=== PATIENT | male | born 1960 | race Caucasian/White ===

== ENCOUNTER 2024-03-23 20:29 | Inpatient (IN) | payer OTHER ==
[2024-03-23 21:20] VITALS: BMI 27.3
[2024-03-23] MEDS ORDERED: BISMUTH SUBSALICYLATE 524 MG/30 ML PO PRN (21:42)
[2024-03-23] MEDS ORDERED: guaiFENesin 600 MG TABLET.ER (FP) PO PRN (21:42)
[2024-03-23] MEDS ORDERED: IBUPROFEN 400 MG TABLET (FP) PO PRN (21:42)
[2024-03-23] MEDS ORDERED: LOPERAMIDE HCL 2 MG CAPSULE PO PRN (21:42)
[2024-03-23] MEDS ORDERED: MAG HYDROX/AL HYDROX/SIMETH 30 ML UNIT-DOSE CUP PO PRN (21:42)
[2024-03-23] MEDS ORDERED: MAGNESIUM HYDROX 2400MG/30ML ORAL SUSPENSION 30 ML CUP PO PRN (21:42)
[2024-03-23] MEDS ORDERED: POLYETHYLENE GLYCOL (HEALTHYLAX) 3350 17 GM PACKET PO PRN (21:42)
[2024-03-23] MEDS ORDERED: BENZONATATE 200 MG CAPSULE PO PRN (21:42)
[2024-03-23] MEDS ORDERED: ONDANSETRON *ODT* 4 MG TABLET SL PRN (21:42)
[2024-03-23] MEDS ORDERED: BENZOCAINE/MENTHOL (CHLORASEPTIC ) LOZENGE MM PRN (21:42)
[2024-03-23] MEDS ORDERED: IBUPROFEN 600 MG TABLET (FP) PO PRN (21:42)
[2024-03-23] MEDS ORDERED: DICYCLOMINE HCL 10 MG CAPSULE PO PRN (21:42)
[2024-03-23] MEDS ORDERED: chlordiazePOXIDE HCL 25 MG CAPSULE PO PRN (21:43)
[2024-03-23] MEDS ORDERED: HYDROCORTISONE 0.5% TOPICAL OINTMENT TUBE TP PRN (22:15)
[2024-03-23] MEDS ORDERED: HYDROCORTISONE 0.5% TOPICAL CREAM 30 GM TUBE TP PRN (22:45)
[2024-03-23] MEDS: chlordiazePOXIDE HCL 25 MG CAPSULE PO SCH (22:52)
[2024-03-23] MEDS: THIAMINE 100 MG TABLET PO SCH (22:52)
[2024-03-23] MEDS: ACETAMINOPHEN 325 MG TABLET (FP) PO PRN (22:53)
[2024-03-23] MEDS: MELATONIN 5 MG TABLETS PO SCH (22:53)
[2024-03-24] MEDS: PRENATAL VITAMINS W/ FOLIC ACID TABLET (FP) PO SCH (10:44)
[2024-03-24 12:24] LABS: HEMATOCRIT 33.6 % (35.4-49); HEMOGLOBIN 11.4 GM/dL (11.7-16.9); MCH 30.7 pg (25.7-33.7); MEAN CELL VOLUME 90.3 fl (80-96); MEAN PLT VOLUME 7.6 fl (7.5-11.1); PLATELET COUNT 253 10^3/uL (134-434); RBC 3.72 M/mm3 (4.00-5.60); RDW 13.7 % (11.9-15.9); WHITE BLOOD COUNT 4.3 K/mm3 (4.0-10.0)
[2024-03-24 13:07] LABS: CHLORIDE 106 mmol/L (98-107); SODIUM 138 mmol/L (136-145)
[2024-03-24 13:11] LABS: BLOOD UREA NITROGEN 18.6 mg/dL (7-18); CALCIUM 9.2 mg/dL (8.5-10.1)
[2024-03-24 13:12] LABS: SGPT/ALT 15 U/L (13-61)
[2024-03-24 13:14] LABS: ANION GAP 8 mmol/L (4-13); CO2 24 mmol/L (21-32); GLUCOSE,RANDOM 103 mg/dL (74-106)
[2024-03-24 13:16] LABS: ALK PHOS 74 U/L (45-117)
[2024-03-24 13:18] LABS: SGOT/AST 19 U/L (15-37)
[2024-03-24 13:20] LABS: BILIRUBIN,TOTAL 0.6 mg/dL (0.2-1)
[2024-03-24 13:21] LABS: ALBUMIN 3.1 g/dl (3.4-5.0); TOT PROT 6.9 g/dl (6.4-8.2)
[2024-03-25] MEDS: chlordiazePOXIDE HCL 25 MG CAPSULE PO SCH (05:48)
[2024-03-25] MEDS: hydrOXYzine PAMOATE 25 MG CAPSULE (FP) PO PRN (10:29)
[2024-03-25] MEDS: METHOCARBAMOL 500 MG TABLET PO PRN (10:29)
[2024-03-26] MEDS ORDERED: chlordiazePOXIDE HCL 10 MG CAPSULE PO PRN
[2024-03-26] MEDS: chlordiazePOXIDE HCL 10 MG CAPSULE PO SCH (05:41)
[2024-03-27] MEDS: chlordiazePOXIDE HCL 10 MG CAPSULE PO SCH (05:47)
[2024-03-28] MEDS: chlordiazePOXIDE HCL 10 MG CAPSULE PO ONE (05:59)
[2024-03-28 08:50] VITALS: BP 123/68; PULSE 79; RESP 18; TEMP 97.6
== END 2024-03-28 09:58 | disposition home or self-care (01) | DRG 775 ==
LOC: YASAS 20:29 → Y6N 22:27
PROVIDERS: ADMIT Allergy & Immunology; ATTEND Allergy & Immunology
PROC: HZ2ZZZZ Detoxification Services for Substance Abuse Treatment (ICD-10-PCS; principal; 2024-03-23)
DX: F10.230 Alcohol dependence with withdrawal, uncomplicated (principal); F32.A Depression, unspecified; M25.511 Pain in right shoulder; Z87.891 Personal history of nicotine dependence
CPT/HCPCS: 36415; 73030-TC-RT-FY; 80053; 80305; 80307; 85027; 86780; 93005; 93010

== ENCOUNTER 2024-06-12 21:26 | Inpatient (IN) | payer OTHER ==
[2024-06-12 22:43] VITALS: BMI 30.4
[2024-06-12] MEDS ORDERED: chlordiazePOXIDE HCL 25 MG CAPSULE PO PRN (23:16)
[2024-06-12] MEDS ORDERED: MAG HYDROX/AL HYDROX/SIMETH 30 ML UNIT-DOSE CUP PO PRN (23:17)
[2024-06-12] MEDS ORDERED: BENZOCAINE/MENTHOL (CHLORASEPTIC ) LOZENGE MM PRN (23:17)
[2024-06-12] MEDS ORDERED: P-EPHED 60MG/TRIPROLIDI 2.5MG TABLET PO PRN (23:17)
[2024-06-12] MEDS ORDERED: MAGNESIUM HYDROX 2400MG/30ML ORAL SUSPENSION 30 ML CUP PO PRN (23:17)
[2024-06-12] MEDS ORDERED: guaiFENesin 600 MG TABLET.ER (FP) PO PRN (23:17)
[2024-06-12] MEDS ORDERED: BISMUTH SUBSALICYLATE 524 MG/30 ML PO PRN (23:17)
[2024-06-12] MEDS ORDERED: METHOCARBAMOL 500 MG TABLET PO PRN (23:17)
[2024-06-12] MEDS ORDERED: POLYETHYLENE GLYCOL (HEALTHYLAX) 3350 17 GM PACKET PO PRN (23:17)
[2024-06-12] MEDS ORDERED: IBUPROFEN 400 MG TABLET (FP) PO PRN (23:17)
[2024-06-12] MEDS ORDERED: IBUPROFEN 600 MG TABLET (FP) PO PRN (23:17)
[2024-06-12] MEDS ORDERED: LOPERAMIDE HCL 2 MG CAPSULE PO PRN (23:17)
[2024-06-12] MEDS ORDERED: NALOXONE (NARCAN) HCL 4 MG/0.1 ML SPRAY NS PRN (23:17)
[2024-06-12] MEDS ORDERED: BENZONATATE 200 MG CAPSULE PO PRN (23:17)
[2024-06-12] MEDS ORDERED: ACETAMINOPHEN 325 MG TABLET (FP) PO PRN (23:17)
[2024-06-13] MEDS ORDERED: MELATONIN 5 MG TABLETS ONE (00:19)
[2024-06-13] MEDS ORDERED: chlordiazePOXIDE HCL 25 MG CAPSULE ONE (00:19)
[2024-06-13] MEDS: chlordiazePOXIDE HCL 25 MG CAPSULE PO SCH (00:24)
[2024-06-13] MEDS: PRENATAL VITAMINS W/ FOLIC ACID TABLET (FP) PO SCH (10:18)
[2024-06-13] MEDS: ONDANSETRON *ODT* 4 MG TABLET SL PRN (10:19)
[2024-06-13 10:41] LABS: HEMATOCRIT 36.9 % (40.1-51.0); HEMOGLOBIN 12.2 g/dL (13.7-17.5); MCHC 33.1 g/dl (32.3-36.5); MEAN CELL VOLUME 90.2 fl (79.0-92.2); MEAN PLT VOLUME 9.4 fl (9.4-12.4); PLATELET COUNT 141 x10^3/uL (163-337)
[2024-06-13 10:45] LABS: POTASSIUM 4.2 mmol/L (3.5-5.1)
[2024-06-13 10:52] LABS: ALBUMIN 3.8 g/dl (3.4-5.0); BLOOD UREA NITROGEN 17.2 mg/dL (7-18); CALCIUM 9.2 mg/dL (8.5-10.1)
[2024-06-13 10:56] LABS: CREATININE 0.9 mg/dL (0.55-1.3)
[2024-06-13 10:57] LABS: BILIRUBIN,TOTAL 1.4 mg/dL (0.2-1); TOT PROT 7.6 g/dl (6.4-8.2)
[2024-06-13] MEDS: MELATONIN 5 MG TABLETS PO SCH (22:40)
[2024-06-13] MEDS: THIAMINE 100 MG TABLET PO SCH (22:40)
[2024-06-14] MEDS: chlordiazePOXIDE HCL 25 MG CAPSULE PO SCH (05:23)
[2024-06-14] MEDS: DICYCLOMINE HCL 10 MG CAPSULE PO PRN (15:03)
[2024-06-15] MEDS ORDERED: chlordiazePOXIDE HCL 10 MG CAPSULE PO PRN
[2024-06-15] MEDS: chlordiazePOXIDE HCL 10 MG CAPSULE PO SCH (05:42)
[2024-06-15 09:47] VITALS: BP 140/73; PULSE 76; RESP 18; TEMP 97.5
[2024-06-16] MEDS ORDERED: chlordiazePOXIDE HCL 10 MG CAPSULE PO SCH (05:00)
[2024-06-17] MEDS ORDERED: chlordiazePOXIDE HCL 10 MG CAPSULE PO ONE (05:00)
== END 2024-06-15 11:01 | disposition home or self-care (01) | DRG 775 ==
LOC: YASAS 21:26 → Y3N 06-13 00:52
PROVIDERS: ADMIT Allergy & Immunology; ATTEND Allergy & Immunology
PROC: HZ2ZZZZ Detoxification Services for Substance Abuse Treatment (ICD-10-PCS; principal; 2024-06-13)
DX: F10.230 Alcohol dependence with withdrawal, uncomplicated (principal); F32.A Depression, unspecified; D64.9 Anemia, unspecified; R74.01 Elevation of levels of liver transaminase levels; E80.6 Other disorders of bilirubin metabolism; Z87.891 Personal history of nicotine dependence; Z86.59 Personal history of other mental and behavioral disorders; Z59.00 Homelessness unspecified
CPT/HCPCS: 36415; 80053; 80305; 80307; 85027; 86780; Q0162